=== PATIENT | female | born 1995 ===

== ENCOUNTER 2022-05-14 16:16 | Inpatient (IN) | payer BC ==
[~2022-05-14 16:16] MED LIST: Oxytocin/0.9 % Sodium Chloride 30 UNIT/500 ML BAG ONE; Phenylephrine HCl In 0.9% NaCl 1 MG/10 ML Vial ONE; ROPIVACAINE EPIDUR ONE; SODIUM CHLORIDE EPIDUR ONE; [UNRECOGNIZED DRUG - OTHER] EPIDUR ONE
[2022-05-14] MEDS ORDERED: Benzocaine/Menthol 20%-0.5% Spray 78 GM Cannister ONE (18:04)
[2022-05-14] MEDS ORDERED: Witch Hazel Medicated Pads 40/Jar TOP ONE (18:04)
[2022-05-14] MEDS ORDERED: Acetaminophen 500 MG Tab ONE (19:22)
[2022-05-14] MEDS ORDERED: Ibuprofen 800 MG Tab ONE (19:22)
[2022-05-14] MEDS ORDERED: Docusate Sodium 100 MG Cap ONE (19:23)
[2022-05-15] MEDS ORDERED: Ibuprofen 800 MG Tab ONE ×2 (04:49→20:56)
[2022-05-15] MEDS ORDERED: Acetaminophen 500 MG Tab ONE ×2 (04:49→16:15)
[2022-05-15] MEDS ORDERED: Docusate Sodium 100 MG Cap ONE ×2 (09:00→20:43)
[2022-05-15] MEDS ORDERED: Witch Hazel Medicated Pads 40/Jar TOP ONE (20:43)
[2022-05-15] MEDS ORDERED: Benzocaine/Menthol 20%-0.5% Spray 78 GM Cannister ONE (20:43)
[2022-05-16] MEDS ORDERED: Acetaminophen 500 MG Tab ONE (07:02)
[2022-05-16] MEDS ORDERED: Docusate Sodium 100 MG Cap ONE (08:49)
[2022-05-16] MEDS ORDERED: Ibuprofen 800 MG Tab ONE (14:59)
== END 2022-05-16 15:10 | disposition home or self-care (01) | DRG 560 ==
LOC: MW.OB 16:16 → MW.ZCENSUS 05-16 07:00 → MW.OB 05-16 17:30
PROVIDERS: ADMIT Obstetrics & Gynecology Obstetrics; ATTEND Obstetrics & Gynecology Obstetrics
PROC: 10D07Z6 Extraction of Products of Conception, Vacuum, Via Natural or Artificial Opening (ICD-10-PCS; principal; 2022-05-14)
PROC: 3E0R3BZ Introduction of Anesthetic Agent into Spinal Canal, Percutaneous Approach (ICD-10-PCS; 2022-05-14)
DX: O70.1 Second degree perineal laceration during delivery (principal); Z3A.39 39 weeks gestation of pregnancy; Z37.0 Single live birth
CPT/HCPCS: 51701; 51702; 59025; 59409; A9270-GY; J2590; J2795